=== PATIENT | female | born 1990 | race Caucasian/White ===

== ENCOUNTER 2016-12-09 22:57 | Emergency (ER) | payer BC ==
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
== END 2016-12-09 23:30 ==
LOC: JD.ED 22:57
CPT/HCPCS: 99282; 99284

== ENCOUNTER 2020-09-19 09:44 | Emergency (ER) | payer BC, OTHER ==
[2020-09-19 09:58] VITALS: BP 137/77; PULSE 104
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
== END 2020-09-19 10:30 | disposition home or self-care (01) ==
LOC: JD.ED 09:44
DX: S06.0X0A Concussion without loss of consciousness, initial encounter (principal); S16.1XXA Strain of muscle, fascia and tendon at neck level, initial encounter; V49.49XA Driver injured in collision with other motor vehicles in traffic accident, initial encounter; Y92.89 Other specified places as the place of occurrence of the external cause
CPT/HCPCS: 99282; 99283

== ENCOUNTER 2020-09-19 18:42 | Emergency (ER) | payer BC, OTHER ==
[2020-09-19 19:04] VITALS: BP 138/76; PULSE 68
[2020-09-19] MEDS ORDERED: Ondansetron 4 MG Tab.DIS PO ONE (19:22)
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
--- NOTE | 2020-09-19 19:54 | CT ---
Head CT Technique: Multiple axial sections through the brain were obtained. Intravenous contrast was not utilized. Reconstructed coronal and axial images were obtained. Comparison: No prior intracranial imaging is available. Findings: Ventricles along with basal cisterns and sulci over the convexities are within normal limits for the patient's age. No abnormal parenchymal densities are seen. No evidence of intracranial hemorrhage. No midline shift or mass-effect is appreciated. Bone window settings were reviewed. Visualized portions of the mastoid and paranasal sinuses show nothing acute. No acute calvarial finding is appreciated. Impression: 1. Nothing acute is appreciated on noncontrast head CT exam. Diagnostic code #1
== END 2020-09-19 20:13 | disposition home or self-care (01) ==
LOC: JD.ED 18:42
DX: R51.9 Headache, unspecified (principal); R11.2 Nausea with vomiting, unspecified; F17.210 Nicotine dependence, cigarettes, uncomplicated
CPT/HCPCS: 70450; 99284; A9270; 99283

== ENCOUNTER 2020-10-04 12:11 | Emergency (ER) | payer BC, OTHER ==
[2020-10-04 12:24] VITALS: BP 125/74; PULSE 73
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
== END 2020-10-04 13:03 | disposition home or self-care (01) ==
LOC: JD.ED 12:11
DX: S06.0X0S Concussion without loss of consciousness, sequela (principal); V89.2XXS Person injured in unspecified motor-vehicle accident, traffic, sequela
CPT/HCPCS: 99283